=== PATIENT | female | born 1990 | race Caucasian/White ===

== ENCOUNTER → 2016-07-13 | Outpatient (CLI) | payer OTHER, SELFPAY ==
--- NOTE | 2016-07-13 12:58 | REP ---
Clinical: Fever and right lower lobe abnormal breath sounds . Comparison: 04/21/2015 . Technique: PA and lateral. Findings: The mediastinum and cardiac silhouette are normal. The lung hall are clear and without acute consolidation, effusion, or pneumothorax. The skeletal structures are intact and normal. Impression: 1. No acute cardiopulmonary process. Signed by Troy Watson MD 07/13/2016 12:50 P
== END ==
LOC: M LRY 12:31
PROVIDERS: ATTEND Nurse Practitioner Family
DX: R09.89 Other specified symptoms and signs involving the circulatory and respiratory systems (principal)

== ENCOUNTER → 2016-07-13 | Outpatient (REF) | payer OTHER | LOC: M SFHCLERA 13:16 | PROVIDERS: ATTEND Nurse Practitioner Family | DX: R50.9 Fever, unspecified (principal) ==